=== PATIENT | female | born 1955 | race African-American/Black ===

== ENCOUNTER 2020-02-25 16:08 | Outpatient (REF) | payer OTHER, SELFPAY ==
--- NOTE | 2020-02-25 16:14 | XR_ITS ---
EXAMINATION: XR LUMBOSACRAL SPINE CLINICAL INFORMATION: Lumbar radiculopathy COMPARISON: None TECHNIQUE: Three views of the lumbosacral spine. FINDINGS: There is no fracture or subluxation. Vertebral body height and alignment is maintained. Mild disc space narrowing of L5-S1. Remaining disc spaces are maintained. Small osteophytes at L3-L4 noted. The sacroiliac joints are symmetric. The sacrum appears intact. The visualized bowel gas pattern is unremarkable. XR/XR lumbar spine 2-3V IMPRESSION: Mild degenerative change noted.
== END 2020-02-25 16:09 | disposition home or self-care (01) ==
LOC: HO.HMGCX 16:08
PROVIDERS: PCP Internal Medicine; Visit Provider Internal Medicine
DX: M54.16 Radiculopathy, lumbar region (principal)
CPT/HCPCS: 72100

== ENCOUNTER 2020-04-09 09:35 | Outpatient (REF) | payer OTHER, SELFPAY ==
--- NOTE | 2020-04-09 | MM_ITS ---
EXAMINATION: MM SCREENING DIGITAL BREAST TOMOSYNTHESIS, BILATERAL CLINICAL INFORMATION: Screening. Asymptomatic. The lifetime risk of breast cancer based on the Tyrer-Cuzick Model is 6%. COMPARISON: Mammography: 12/06/2018, 06/19/2013 TECHNIQUE: Digital breast tomosynthesis is performed in both the craniocaudal and mediolateral oblique views along with computer-aided detection (CAD). Synthesized 2D images are generated from the tomosynthesis. Additional right CC view is provided. FINDINGS: There are scattered areas of fibroglandular density (ACR BI-RADS breast composition Category b). There are no significant masses, abnormal calcifications, or other abnormalities. Parenchymal pattern is similar to prior study. No developing density. No significant changes. MM/MM tomosynthesis screening BI IMPRESSION: No mammographic evidence of malignancy. ASSESSMENT: BI-RADS 1: Negative RECOMMENDATION: Routine annual mammography screening. This patient's information was entered into a reminder system with a target due date for their next mammogram.
== END 2020-04-09 09:36 | disposition home or self-care (01) ==
LOC: HO.MAMMO 09:35
PROVIDERS: Visit Provider Internal Medicine
DX: Z12.31 Encounter for screening mammogram for malignant neoplasm of breast (principal)
CPT/HCPCS: 77063; 77067

== ENCOUNTER 2020-08-28 12:58 | Outpatient (REF) | payer OTHER, SELFPAY ==
--- NOTE | ~2020-08-28 | MM_ITS ---
EXAMINATION: BONE DENSITOMETRY CLINICAL INDICATION: Encounter for screening for osteoporosis. Age-related osteoporosis without current pathological fracture. History of osteoporosis, follow up. COMPARISON: Previous BD dated 03/12/2013 and baseline BD dated 06/22/2010. TECHNIQUE: Using a Agent[employer] DXA System (software version: 13.1) manufactured by [employer], dual-energy x-ray absorptiometry was performed of the lumbar spine and left hip. The images are of good technical quality. Summary results are attached. FINDINGS: AP SPINE L1-L4: Current: BMD 0.864 g/cm2, Z-score -1.6, T-score -2.6, osteoporosis, 7.3% decrease from previous, 1.7% decrease from baseline (<5% change is not significant). Prior: BMD 0.932 g/cm2. Baseline: BMD 0.879 g/cm2. LEFT FEMUR, NECK: Current: BMD 0.890 g/cm2, Z-score -0.4, T-score -1.1, osteopenia. Prior: BMD 0.959 g/cm2. Baseline: BMD 0.950 g/cm2. LEFT FEMUR, TOTAL: Current: BMD 0.989 g/cm2, Z-score 0.2, T-score -0.1, normal, -5.4% decrease from previous, -2.9% decrease from baseline (<5% change is not significant). Prior: BMD 1.046 g/cm2. Baseline: BMD 1.019 g/cm2. IDENTIFIED RISK FACTORS: Bilateral oophorectomy. Hysterectomy. Secondary osteoporosis, (early menopause). Osteoporosis. HISTORY OF FRACTURE: None listed. MEDICATIONS: None listed. MM/XR DEXA axial skeleton IMPRESSION: 1. DIAGNOSIS: Osteoporosis based on the lowest T-score value of -2.6 in the lumbar spine applying World Health Organization criteria. 2. 10-YEAR FRACTURE RISK PREDICTION, FRAX: According to the guidelines, FRAX calculation should only be performed on patients in the osteopenia bone density category. Therefore, FRAX was not performed on this patient. 3. Treatment Recommendations: NOF guidelines recommend consideration for treatment in postmenopausal women and men age 50 and older presenting with the following: -A hip or vertebral (clinical or morphometric) fracture. -T-score less than or equal to -2.5 at the femoral neck or spine after appropriate evaluation to exclude secondary causes. -Low bone mass at the hip or spine and a 10-year fracture probability by FRAX of greater than or equal to 3% for hip fracture or greater than or equal to 20% for major osteoporotic fracture based on the [place] adapted WHO algorithm. 4. Other Recommendations: All treatment decisions require clinical judgment and consideration of individual patient factors, including patient preferences, comorbidities, previous drug use, risk factors not captured in the FRAX model (e.g. frailty, falls, vitamin D deficiency, increased bone turnover, interval significant decline in bone density) and possible under or overestimation of fracture risk by FRAX. Additional medical evaluation for secondary cause of low bone mineral density may be appropriate. FUTURE SCAN RECOMMENDATION: People with diagnosed cases of osteoporosis or at high risk for fracture should have regular bone mineral density tests. For patients eligible for Medicare, routine testing is allowed once every 2 years. The testing frequency can be increased to one year for patients who have rapidly progressing disease, those who are receiving or discontinuing medical therapy to restore bone mass, or have additional risk factors.
== END 2020-08-28 12:59 | disposition home or self-care (01) ==
LOC: HO.MAMMO 12:58
PROVIDERS: PCP Internal Medicine; Visit Provider Internal Medicine
DX: M81.0 Age-related osteoporosis without current pathological fracture (principal); Z90.722 Acquired absence of ovaries, bilateral; Z90.710 Acquired absence of both cervix and uterus
CPT/HCPCS: 77080

== ENCOUNTER 2020-10-13 06:15 | Outpatient (REF) | payer OTHER, SELFPAY ==
[2020-10-13 07:01] LABS: MANUAL DIFF FLAG NO
[2020-10-13 07:04] LABS: Basophils Percent Auto 0.5 % (0-2); Eosinophils Absolute Auto 0.1 X10*3/uL (0.0-0.4); Eosinophils Percent Auto 2.2 % (0-4); Hematocrit 33.3 % (37-47); Hemoglobin 10.7 g/dl (12.0-16.0); Immature Retic Fraction 4.8 % (3.0-15.9); Lymphocytes Absolute Auto 2.2 X10*3/uL (1.2-4.9); Lymphocytes Percent Auto 53.8 % (20-40); Mean Corpuscular HGB Conc 32.1 g/dl (31.0-35.0); Mean Corpuscular Hemoglobin 27.4 pg (27.0-33.0); Mean Corpuscular Volume 85.4 fL (80-98); Monocytes Absolute Auto 0.3 X10*3/uL (0.1-1.2); Neutrophils Absolute Auto 1.5 X10*3/uL (2.0-8.3); Neutrophils Percent Auto 35.5 % (45-73); Platelet Count 246 X10*3/uL (160-400); Red Cell Distribution Width 13.7 % (11.0-16.0); Retic HGB Equivalent 31.3 pg (30.0-35.0); Reticulocyte Percent 1.2 % (0.5-1.8); Reticulocytes Absolute 0.046 X10*6/uL (0.026-0.095); White Blood Count 4.1 X10*3/uL (4.8-10.8)
[2020-10-13 07:27] LABS: Alanine Aminotransferase 28 U/L (0-31); Albumin Level 4.2 g/dL (3.5-5.0); Alkaline Phosphatase 80 U/L (39-117); Anion Gap 12 (12-20); Aspartate Amino Transferase 25 U/L (5-31); Bilirubin Total 0.9 mg/dL (0.0-1.0); Blood Urea Nitrogen 20 mg/dL (9-16); Calcium 9.4 mg/dL (8.4-10.2); Carbon Dioxide 27 mmol/L (22-29); Chloride 107 mmol/L (96-108); Cholesterol 162 mg/dL; Estimated Glomerular Filt Rate > 60; Glucose Random 87 mg/dL (60-115); HDL Cholesterol 54 mg/dL; Iron 78 mcg/dL (30-160); LDL Cholesterol Calculated 98 mg/dl; Percent Iron Saturation 22 % (15-50); Potassium 4.6 mmol/L (3.3-5.1); Sodium 141 mmol/L (135-145); Total Iron Binding Capacity 354 mcg/dL (228-428); Triglycerides 50 mg/dL; Unsaturated Iron Binding 276 ug/dL
[2020-10-13 07:51] LABS: Ferritin 23 ng/mL (10-250); Free T4 (Free Thyroxine) 0.99 ng/dL (0.71-1.85); Thyroid Stimulating Hormone 0.61 uIU/mL (0.32-4.0); Vitamin D 25-OH Total 19.6 ng/mL (>30)
[2020-10-13 08:39] LABS: Folate > 20.0 ng/mL (> or = 4.0); Vitamin B12 432 pg/mL (200-900)
== END 2020-10-13 06:16 | disposition home or self-care (01) ==
LOC: HO.LAB 06:15
PROVIDERS: PCP Internal Medicine; Visit Provider Internal Medicine
DX: D64.9 Anemia, unspecified (principal); E78.00 Pure hypercholesterolemia, unspecified; M81.0 Age-related osteoporosis without current pathological fracture
CPT/HCPCS: 36415; 80053; 80061; 82306; 82607; 82728; 82746; 83540; 84439; 84443; 85025; 85045

== ENCOUNTER 2022-01-31 08:55 | Outpatient (REF) | payer OTHER, SELFPAY ==
--- NOTE | ~2022-01-31 | XR_ITS ---
EXAMINATION: 1. RADIOGRAPHS RIGHT KNEE 2. RADIOGRAPHS LEFT KNEE CLINICAL INFORMATION: Knee pain COMPARISON: None TECHNIQUE: 2 views of each knee were obtained. FINDINGS: Right knee: No fracture or dislocation. Small suprapatellar joint effusion. Joint spaces are relatively well-maintained. Tiny tricompartmental marginal osteophytes. No focal soft tissue swelling of the anterior knee. Left knee: No fracture or dislocation. Small suprapatellar joint effusion. Mild narrowing of the medial joint compartment. Tiny tricompartmental marginal osteophytes. No focal soft tissue swelling of the anterior knee. XR/XR knee RT 2V IMPRESSION: Mild degenerative changes of both knees with small bilateral suprapatellar joint effusions.
--- NOTE | ~2022-01-31 | XR_ITS ---
EXAMINATION: 1. RADIOGRAPHS RIGHT KNEE 2. RADIOGRAPHS LEFT KNEE CLINICAL INFORMATION: Knee pain COMPARISON: None TECHNIQUE: 2 views of each knee were obtained. FINDINGS: Right knee: No fracture or dislocation. Small suprapatellar joint effusion. Joint spaces are relatively well-maintained. Tiny tricompartmental marginal osteophytes. No focal soft tissue swelling of the anterior knee. Left knee: No fracture or dislocation. Small suprapatellar joint effusion. Mild narrowing of the medial joint compartment. Tiny tricompartmental marginal osteophytes. No focal soft tissue swelling of the anterior knee. XR/XR knee LT 2V IMPRESSION: Mild degenerative changes of both knees with small bilateral suprapatellar joint effusions.
== END 2022-01-31 08:56 | disposition home or self-care (01) ==
LOC: HO.XRAY 08:55
PROVIDERS: PCP Internal Medicine; Visit Provider Internal Medicine
DX: M25.561 Pain in right knee (principal); M25.562 Pain in left knee
CPT/HCPCS: 73560

== ENCOUNTER 2022-04-22 07:15 | Outpatient (REF) | payer OTHER, SELFPAY ==
[2022-04-22 07:27] LABS: MANUAL DIFF FLAG NO
[2022-04-22 07:40] LABS: Basophils Percent Auto 0.4 % (0-2); Eosinophils Absolute Auto 0.1 X10*3/uL (0.0-0.4); Eosinophils Percent Auto 1.8 % (0-4); Hematocrit 37.4 % (37.0-47.0); Hemoglobin 11.8 g/dl (12.0-16.0); Immature Retic Fraction 4.7 % (3.0-15.9); Lymphocytes Absolute Auto 2.2 X10*3/uL (1.2-4.9); Lymphocytes Percent Auto 48.7 % (20-40); Mean Corpuscular HGB Conc 31.6 g/dl (31.0-35.0); Mean Corpuscular Hemoglobin 27.4 pg (27.0-33.0); Mean Platelet Volume 9.8 fL (9.4-12.3); Monocytes Absolute Auto 0.4 X10*3/uL (0.1-1.2); Monocytes Percent Auto 8.7 % (2-11); Neutrophils Absolute Auto 1.8 x10*3/uL (2.0-8.3); Neutrophils Percent Auto 40.4 % (45-73); Platelet Count 309 X10*3/uL (160-400); Red Cell Distribution Width 13.5 % (11.0-16.0); Retic HGB Equivalent 31.8 pg (30.0-35.0); Reticulocyte Percent 1.1 % (0.5-1.8); Reticulocytes Absolute 0.046 X10*6/uL (0.026-0.095); White Blood Count 4.5 X10*3/uL (4.8-10.8)
[2022-04-22 08:25] LABS: Alanine Aminotransferase 18 U/L (0-31); Albumin Level 4.1 g/dL (3.5-5.0); Alkaline Phosphatase 66 U/L (39-117); Anion Gap 9 (12-20); Aspartate Amino Transferase 19 U/L (5-31); Bilirubin Total 0.4 mg/dL (0.0-1.0); Blood Urea Nitrogen 15 mg/dL (9-16); Calcium 9.2 mg/dL (8.4-10.2); Carbon Dioxide 30 mmol/L (22-29); Chloride 107 mmol/L (96-108); Cholesterol 172 mg/dL; Estimated Glomerular Filt Rate > 60; Glucose Random 96 mg/dL (60-115); HDL Cholesterol 47 mg/dL; Iron 71 mcg/dL (30-160); LDL Cholesterol Calculated 110 mg/dl; Percent Iron Saturation 25 % (15-50); Potassium 4.1 mmol/L (3.3-5.1); Sodium 142 mmol/L (135-145); Total Iron Binding Capacity 282 mcg/dL (228-428); Total Protein 7.8 g/dL (6.5-8.0); Triglycerides 77 mg/dL; Unsaturated Iron Binding 211 ug/dL
[2022-04-22 09:01] LABS: Ferritin 67 ng/mL (10-250); Free T4 (Free Thyroxine) 0.99 ng/dL (0.71-1.85); Thyroid Stimulating Hormone 0.75 uIU/mL (0.32-4.0); Vitamin D 25-OH Total 31.4 ng/mL (>30)
[2022-04-22 09:16] LABS: Folate 13.1 ng/mL (> or = 4.0); Vitamin B12 461 pg/mL (200-900)
== END 2022-04-22 07:16 | disposition home or self-care (01) ==
LOC: HO.LAB 07:15
PROVIDERS: PCP Internal Medicine; Visit Provider Internal Medicine
DX: D64.9 Anemia, unspecified (principal); E78.00 Pure hypercholesterolemia, unspecified
CPT/HCPCS: 36415; 80053; 80061; 82306; 82607; 82728; 82746; 83540; 84439; 84443; 85025; 85045

== ENCOUNTER 2022-05-18 12:43 | Outpatient (REF) | payer OTHER, SELFPAY ==
--- NOTE | ~2022-05-18 | MM_ITS ---
EXAMINATION: MM SCREENING DIGITAL BREAST TOMOSYNTHESIS, BILATERAL CLINICAL INFORMATION: Screening. Asymptomatic. The lifetime risk of breast cancer based on the Tyrer-Cuzick Model is 3.9%. COMPARISON: Mammography: April 09, 2020 and studies dating back to June 19, 2013 TECHNIQUE: Digital breast tomosynthesis is performed in both the craniocaudal and mediolateral oblique views along with computer-aided detection (CAD). Synthesized 2D images are generated from the tomosynthesis. FINDINGS: There are scattered areas of fibroglandular density (ACR BI-RADS breast composition Category b). There are no significant masses, abnormal calcifications, or other abnormalities. MM/MM tomosynthesis screening BI IMPRESSION: No significant changes from prior exam. ASSESSMENT: BI-RADS 1: Negative RECOMMENDATION: Routine annual mammography screening. This patient's information was entered into a reminder system with a target due date for their next mammogram.
== END 2022-05-18 12:44 | disposition home or self-care (01) ==
LOC: HO.MAMMO 12:43
PROVIDERS: PCP Internal Medicine; Visit Provider Internal Medicine
DX: Z12.31 Encounter for screening mammogram for malignant neoplasm of breast (principal)
CPT/HCPCS: 77063; 77067

== ENCOUNTER 2022-08-30 09:22 | Outpatient (REF) | payer OTHER, SELFPAY ==
--- NOTE | ~2022-08-30 | MM_ITS ---
EXAMINATION: BONE DENSITOMETRY CLINICAL INDICATION: Age-related osteoporosis without current pathological fracture. COMPARISON: Previous BD dated 08/28/2020 and baseline BD dated 06/22/2010. TECHNIQUE: Using a [employer] DXA System (software version: 13.1) manufactured by [employer], dual-energy x-ray absorptiometry was performed of the lumbar spine and left hip. The images are of good technical quality. Summary results are attached. FINDINGS: AP SPINE L1-L4: Current: BMD 0.908 g/cm2, Z-score -1.4, T-score -2.3, osteopenia, 5.1% increase from previous, 3.3% increase from baseline (<5% change is not significant). Prior: BMD 0.864 g/cm2. Baseline: BMD 0.879 g/cm2. LEFT FEMUR, NECK: Current: BMD 0.916 g/cm2, Z-score -0.4, T-score -0.9, normal. Prior: BMD 0.890 g/cm2. Baseline: BMD 0.950 g/cm2. LEFT FEMUR, TOTAL: Current: BMD 1.028 g/cm2, Z-score 0.3, T-score 0.2, normal, 3.9% increase from previous, 0.9% increase from baseline (<5% change is not significant). Prior: BMD 0.989 g/cm2. Baseline: BMD 1.019 g/cm2. IDENTIFIED RISK FACTORS: Menopause, hysterectomy, osteoporosis. HISTORY OF FRACTURE: None listed. MEDICATIONS: Calcium supplements or multivitamin, vitamin D, bisphosphonate. MM/XR DEXA axial skeleton IMPRESSION: 1. DIAGNOSIS: Osteopenia based on the lowest T-score value of -2.3 in the lumbar spine applying World Health Organization criteria. 2. 10-YEAR FRACTURE RISK PREDICTION, FRAX: Not performed in this patient on estrogen or bone building treatments. 3. Treatment Recommendations: NOF guidelines recommend consideration for treatment in postmenopausal women and men age 50 and older presenting with the following: -A hip or vertebral (clinical or morphometric) fracture. -T-score less than or equal to -2.5 at the femoral neck or spine after appropriate evaluation to exclude secondary causes. -Low bone mass at the hip or spine and a 10-year fracture probability by FRAX of greater than or equal to 3% for hip fracture or greater than or equal to 20% for major osteoporotic fracture based on the [place] adapted WHO algorithm. 4. Other Recommendations: All treatment decisions require clinical judgment and consideration of individual patient factors, including patient preferences, comorbidities, previous drug use, risk factors not captured in the FRAX model (e.g. frailty, falls, vitamin D deficiency, increased bone turnover, interval significant decline in bone density) and possible under or overestimation of fracture risk by FRAX. Additional medical evaluation for secondary cause of low bone mineral density may be appropriate. FUTURE SCAN RECOMMENDATION: People with diagnosed cases of osteoporosis or at high risk for fracture should have regular bone mineral density tests. For patients eligible for Medicare, routine testing is allowed once every 2 years. The testing frequency can be increased to one year for patients who have rapidly progressing disease, those who are receiving or discontinuing medical therapy to restore bone mass, or have additional risk factors.
== END 2022-08-30 09:23 | disposition home or self-care (01) ==
LOC: HO.MAMMO 09:22
PROVIDERS: PCP Internal Medicine; Visit Provider Internal Medicine
DX: Z13.820 Encounter for screening for osteoporosis (principal); Z78.0 Asymptomatic menopausal state; M81.0 Age-related osteoporosis without current pathological fracture
CPT/HCPCS: 77080

== ENCOUNTER 2022-10-14 08:14 | Emergency (ER) | payer OTHER, SELFPAY ==
[2022-10-14 08:21] VITALS: BP 134/74; PULSE 78; RESP 17; TEMP 36.6; O2SAT 98; BMI 25.5
--- NOTE | 2022-10-14 08:43 | ED.LOWEXIN ---
HPI - Extremity Injury (Lower) General Chief Complaint: Wound/Laceration Stated Complaint: stepped on nail Time Seen by Provider: 10/14/22 08:43 Source: patient, RN notes reviewed and old records reviewed Mode of arrival: ambulatory History of Present Illness HPI Narrative: 67-year-old female with a past medical history of anemia, osteoarthritis, presenting to the ED complaining puncture wound to left foot s/p stepping on a lilian nail this morning around 06:30AM. Admits was walking in garden, then felt puncture to foot, was wearing shoes. Tetanus unknown. Denies injury to other area, numbness, tingling or weakness MD complaint: foot injury Related Data Previous Rx's Medication Instructions Recorded alendronate 70 mg tablet 70 mg PO QWEEK 90 days #13 tabs 01/20/22 meloxicam 15 mg tablet 15 mg PO DAILY #20 tabs 01/28/22 ascorbate calcium (vitamin C) 500 500 mg PO DAILY 90 days #90 tabs 07/06/22 mg tablet cholecalciferol (vitamin D3) 25 25 mcg PO DAILY 90 days #90 tabs 07/06/22 mcg (1,000 unit) tablet (Vitamin D3) ferrous sulfate 325 mg (65 mg 325 mg PO BID #60 tabs 10/06/22 iron) tablet cephalexin 500 mg capsule 500 mg PO QID 7 days #28 caps 10/14/22 ciprofloxacin HCl 500 mg tablet 500 mg PO BID 7 days #14 tabs 10/14/22 (Cipro) Allergies Allergy/AdvReac Type Severity Reaction Status Date / Time No Known Allergies Allergy Verified 10/14/22 08:20 Review of Systems Review of Systems: Constitutional: No Fever, No Chills ENT/Mouth: No Ear Pain, No Nasal Congestion, No sore throat, No Rhinorrhea, No Swallowing Difficulty Cardiovascular: No Chest Pain, No SOB Respiratory: No Cough, No Sputum, No Wheezing Gastrointestinal: No Nausea, No Vomiting, No Abdominal pain Musculoskeletal: No joint pain, No Myalgias, No Joint Swelling Skin: + Skin Lesions, No rash Neuro: No Weakness, No Numbness, No Paresthesias Yes all other systems are reviewed and are negative Constitutional: Constitutional: Reports as per [facility] Past Medical History Attestation statement: The following information was validated with the patient. Source: old records reviewed Medical History Amenorrhea Bilateral knee pain Breast lesion Malaria Osteoporosis Right lumbar radiculitis Vitamin D deficiency Surgical History H/O hysterectomy for benign disease Family History Family History Mother No problems noted. Father No problems noted. Brother No problems noted. Social History Social History Housing: Other Alcohol intake: never Patient Tobacco Use Status: Never used Tobacco e-Cigarette/Vaping Use: Never Used Second Hand Smoke Exposure: No Advance Directives: No service: No Current occupational status: unemployed Cognitive needs: No Hearing needs: No Vision needs: No Physical Exam Vital Signs: Vital Signs: Last Vital Signs Temp 98 F 10/14/22 08:21 Pulse 78 10/14/22 08:21 Resp 17 10/14/22 08:21 BP 134/74 10/14/22 08:21 Pulse Ox 98 10/14/22 08:21 O2 Del Method Room Air 10/14/22 08:21 BMI result Body Mass Index 25.5 Const: General: cooperative, healthy appearing and no acute distress Orientation/consciousness: patient oriented x3 Limitations: no limitations HEENT: Head: Yes normal to inspection and Yes atraumatic Ears: hearing grossly normal bilaterally General nose exam: Normal external nose present Face and sinus: Yes normal facial exam Eyes: General: appearance normal, both eyes and all related structures EOM: EOMs intact bilaterally Neck: Neck: Yes normal visual inspection and Yes no meningeal signs Resp: Effort & Inspection: normal respiratory effort and no respiratory distress Cardio: Rate: regular rate Peripheral pulses: dorsalis pedis present Skin: Other: + 1.5 cm laceration noted to plantar aspect of left foot. Subcu tissue present. Bleeding controlled. No surrounding erythema, fluctuance/induration or pus drainage. Neurovascularly intact Rashes: no rashes Neuro: General: patient oriented x3, tone normal and no meningeal signs Gait exam (Neuro): Normal gait present Extrem: General: Yes normal to inspection Medications Administered Discontinued Medications Generic Name Dose Route Start Last Admin Trade Name Freq PRN Reason Stop Dose Admin Diphtheria/Tetanus/Acell Pertussis 0.5 ml 10/14/22 09:17 10/14/22 09:21 Diphth,Pertus(Acell),Tet Adult 0.5 Ml Syringe IM 10/14/22 09:18 0.5 ml .ONCE ONE Administration Lidocaine HCl 5 ml 10/14/22 09:17 10/14/22 09:23 Lidocaine Hcl 1 % Mpf 5 Ml Vial INFILTRATI 10/14/22 09:18 5 ml ONCE ONE Administration Medical Decision Making Medical Decision Making MDM Narrative: 67-year-old female with a past medical history of anemia, osteoarthritis, presenting to the ED complaining puncture wound to left foot s/p stepping on a lilian nail this morning around 06:30AM. On exam vital signs stable, NAD, nontoxic appearing, physical exam as above with plantar puncture wound/laceration with subcu tissue. No surrounding cellulitis, bleeding controlled. No evidence of retained foreign body Plan: Update tetanus, repair wound, p.o. antibiotics Discussed with patient ideally would let wound closed by secondary intention however due to depth/extending subcu tissue was sutured closed. Discussed risk of infection and importance of antibiotic compliance. Please refer to course for remaining clinical decision making, interpretation of labs/imaging results, and discussions with consultants and/or family members. Results discussed with patient including worrisome signs and symptoms and strict return precautions, and when to return to the emergency department. They verbalized understanding and feel safe for discharge at this time. Differential Diagnosis Differential Diagnoses: The differential diagnosis associated with the presentation includes As above External Record Review External record reviewed: Inpatient record, Office record, Outpatient record, Prior outpatient labs, Prior outpatient radiology, Primary care record and Outside ED record Tests considered The following testing was considered but not selected: As above Prescription Management I considered prescription management with: Pain Medication and Antibiotic Procedures Laceration Laceration 1: Site: lower extremity Side (If applicable): left Size (cm): 1.5 Description: linear Depth: simple, single layer Local Anesthetic: lidocaine 1% Amount of anesthesia used (mL): 4 Pre-repair: wound explored, irrigated extensively and deep structures intact Skin layer closed with: nylon Size (cm): 4-0 Number of sutures: 4 Technique: simple, interrupted Discharge Plan Discharge Clinical Impression: Puncture wound of plantar aspect of foot, Laceration of foot Patient Disposition: Home, Self-Care Instructions: Laceration (DC), Puncture Wound in the Foot (ED) Additional Instructions: Keflex and Cipro are antibiotics based take as prescribed, please look at wound daily Your wounds were repaired today in the emergency department. Keep dry and clean. You need to return to any emergency department, urgent care, or your PCPs office in 7-10 days for suture removal Apply bacitracin and or Neosporin daily Once sutures are removed apply anti scar cream like Mederma If area begins look infected, is red, there is drainage, streaking, or you have fever please return to the emergency department Prescriptions: New ciprofloxacin HCl [Cipro] 500 mg tablet 500 mg PO BID 7 Days Qty: 14 0RF cephalexin 500 mg capsule 500 mg PO QID 7 Days Qty: 28 0RF No Action alendronate 70 mg tablet 70 mg PO QWEEK 90 Days Qty: 13 3RF ferrous sulfate 325 mg (65 mg iron) tablet 325 mg PO BID Qty: 60 2RF cholecalciferol (vitamin D3) [Vitamin D3] 25 mcg (1,000 unit) tablet 25 mcg PO DAILY 90 Days Qty: 90 3RF ascorbate calcium (vitamin C) 500 mg tablet 500 mg PO DAILY 90 Days Qty: 90 3RF meloxicam 15 mg tablet 15 mg PO DAILY Qty: 20 0RF Referrals: Po,Joy Lo MD [Primary Care Provider] - 1 week (For suture removal) Stand Alone Forms: Work/School Release Interventions: ED Discharge Assessment Last Done: 10/14/22 10:23 Discharge Date/Time: 10/14/22 10:24
--- NOTE | 2022-10-14 10:03 | PC.NURSE ---
provider at bedside suturing pt
== END 2022-10-14 10:24 | disposition home or self-care (01) ==
PROVIDERS: Emergency Provider Emergency Medicine Emergency Medical Services; PCP Internal Medicine
DX: S91.332A Puncture wound without foreign body, left foot, initial encounter (principal); S91.312A Laceration without foreign body, left foot, initial encounter; S90.812A Abrasion, left foot, initial encounter; W45.8XXA Other foreign body or object entering through skin, initial encounter; Y93.9 Activity, unspecified; Y92.9 Unspecified place or not applicable; Y99.9 Unspecified external cause status; Z23 Encounter for immunization
CPT/HCPCS: 12001; 90471; 90715; 99282; 99284

== ENCOUNTER 2022-10-17 10:27 | Outpatient (AMB) | payer OTHER, SELFPAY ==
[2022-10-17 10:41] VITALS: BP 110/68; PULSE 95; O2SAT 96; BMI 26.6
--- NOTE | 2022-10-17 10:41 | A.OFFPC_ITS ---
Vital Signs 10/17/22 10:41 Height 5 ft 1 in Weight 141 lb BMI 26.6 BP 110/68 Blood Pressure Location Lt brachial Position Sitting Pulse 95 Pulse Source Pulse Oximeter Pulse Oximetry (%) 96 Oxygen Delivery Method Room Air Intake Visit Reasons: pain in foot- Intake Note: Patient here c/o of painful, swollen left foot since Monday [employer] Supervisor Required: No Accompanied by: Self / Same As Patient Allergies No Known Allergies Allergy (Verified 10/17/22 10:43) Tobacco use date assessed: 07/06/22 Fall risk assessment: No Falls in past year Last assessed Fall Risk: 10/17/22 Dental Screening Dental Screen Date: 10/17/22 Did you have a dental visit in the last 12 months?: No Did you have a dental problem in the last 6 months where you did not have access to dental care?: No Was dental information given to patient?: No HPI HPI Comments History of Present Illness Details 67-year-old female past medical history significant for lumbar degenerative disc disease, anemia, osteoporosis. Patient patient presents today for ER follow-up after stepping on a lilian nail on 10/14/22, tetanus shot was given in the emergency room and patient was placed on p.o. Keflex and cipro, recommended patient follow-up in 7-10 days for suture removal. Patient states does hav some throbbing pain in left foot at times has taken tylenol with some relief and also reports some swelling and warmth in the foot. Patient states on started on keflex. Patient advised to start on ciproflaxcin as advised by ER to prevent infection. 4 sutures present left plantar forefoot of right foot edges well approximated no erythema, drainage or warmth noted to site. Denies fevers,chills and sob. [facility] Medical History (Updated 10/17/22 @ 12:31 by MAGGIE Pimentel) Amenorrhea Bilateral knee pain Breast lesion Laceration of foot Malaria Osteoporosis Right lumbar radiculitis Vitamin D deficiency Surgical History H/O hysterectomy for benign disease Family History Mother No problems noted. Father No problems noted. Brother No problems noted. Social History Housing: Other Alcohol intake: never Patient Tobacco Use Status: Never used Tobacco e-Cigarette/Vaping Use: Never Used Second Hand Smoke Exposure: No service: No Current occupational status: unemployed Cognitive needs: No Hearing needs: No Vision needs: No Questionnaire Thrive Questionnaire Date Thrive assessed: 07/06/22 RYLEE-7 AMB Questionnaire RYLEE-7 Date RYLEE - 7 assessed: 07/06/22 Source: Developed by Drs. Ravi Harrison, Aretha Saldivar, Jamal Corley and colleagues, with an educational edelmira from [employer]. Review of Systems Const Denies chills, Denies fatigue, Denies fever(s) and Denies poor appetite Eyes Denies no additional complaints ENT Reports Normal hearing present Card Denies chest pain, Denies syncope, Denies rapid heart rate and Denies dyspnea Resp Denies cough and Denies dyspnea GI Denies change in stool character, Denies constipation, Denies diarrhea, Denies nausea and Denies vomiting Denies urinary frequency, Denies dysuria and Denies urinary urgency Skin/Breast Reports other (4 sutures right bottom of foot. ) Neuro Reports Normal hearing present, Denies confusion and Denies syncope Psych Denies confusion Endo Denies fatigue Physical exam (Primary Care) Vital Signs: Last Vital Signs Pulse 95 10/17/22 10:41 BP 110/68 10/17/22 10:41 Pulse Ox 96 10/17/22 10:41 Oxygen Delivery Method Room Air 10/17/22 10:41 BMI result Body Mass Index 26.6 Tobacco/Smoking Status: Tobacco use Status Tobacco use date assessed 07/06/22 10/17/22 10:45 Patient Tobacco Use Status Never used Tobacco 10/17/22 10:45 e-Cigarette/Vaping Use Never Used 10/17/22 10:45 Thrive Assessment: Date of Thrive Assessment Date Thrive assessed 07/06/22 10/17/22 10:45 Const General: No confusion Orientation/consciousness: No confusion Neuro General: No confusion Cranial nerves: Yes Normal hearing present Extrem Ankle/foot/toe images: 1. 4 sutures present to left plantar forefoot edges well approximated, no erythema, drainage or warmth. Assessment and Plan Assessment & Plan (1) Laceration of foot: Code(s): S91.319A - Laceration without foreign body, unspecified foot, initial encounter Plan: Patient advised to take keflex and ciproflaxin. Patient made aware of possible side effect of cipro can cause tendon rupture. Signs and symptoms reviewed with patient when to follow up. Please follow up on 10/21/22 or 10/24/22 for suture removal. Continue to keep covered when ambulating and appl antibiotic ointment such as bacitracin. 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 Patient adivised can take OTC ibuprofen or Tylenol with food as needed for pain and swelling, Do not take ibuprofen with meloxicam elevate foot when sitting. Plan Follow up in 1 week for suture removal Coding Level of Care Code Est Pt Level 3 (60262) Diagnoses Laceration of foot S91.319A
== END 2022-10-17 11:04 | disposition home or self-care (01) ==
PROVIDERS: PCP Internal Medicine; Visit Provider Nurse Practitioner Family
DX: S91.319A Laceration without foreign body, unspecified foot, initial encounter (principal)
CPT/HCPCS: 99213

== ENCOUNTER 2022-10-21 07:58 | Outpatient (AMB) | payer OTHER, SELFPAY ==
--- NOTE | 2022-10-21 08:08 | MHC.PC.OV ---
Vital Signs 10/21/22 08:09 Height 5 ft 1 in Weight 143 lb 6 oz BMI 27.1 BP 140/92 H Blood Pressure Location Lt brachial Position Sitting Pulse 65 Pulse Source Pulse Oximeter Pulse Oximetry (%) 98 Oxygen Delivery Method Room Air Intake Visit Reasons: Suture Removal Left Foot Water Main Pipe Layer Required: No Accompanied by: Self / Same As Patient Allergies No Known Allergies Allergy (Verified 10/21/22 08:09) Tobacco use date assessed: 10/21/22 Fall risk assessment: No Falls in past year Last assessed Fall Risk: 10/21/22 Dental Screening Dental Screen Date: 10/21/22 Did you have a dental visit in the last 12 months?: No Did you have a dental problem in the last 6 months where you did not have access to dental care?: No Was dental information given to patient?: No HPI HPI Comments History of Present Illness Details 67-year-old female past medical history significant for lumbar degenerative disc disease, anemia, osteoporosis.? Patient patient presents today for suture removal after stepping on a lilian nail on 10/14/22, tetanus shot was given in the emergency room and patient was placed on p.o. Keflex and cipro, patient presents today for suture removal. 4 sutures removed from left plantar forefoot of right foot edges well approximated no erythema, drainage or warmth noted to site, healing ecchymosis noted around injury.Patient tolerated well. Denies fevers,chills and sob.? Patient states has a couple more days left and then she will complete her antibiotics. [facility] Medical History (Updated 10/17/22 @ 12:31 by MAGGIE Pimentel) Amenorrhea Bilateral knee pain Breast lesion Laceration of foot Malaria Osteoporosis Right lumbar radiculitis Vitamin D deficiency Surgical History H/O hysterectomy for benign disease Family History Mother No problems noted. Father No problems noted. Brother No problems noted. Social History Housing: Other Alcohol intake: never Patient Tobacco Use Status: Never used Tobacco e-Cigarette/Vaping Use: Never Used Second Hand Smoke Exposure: No service: No Current occupational status: unemployed Cognitive needs: No Hearing needs: No Vision needs: No Questionnaire PHQ-9 Over the last 2 weeks, how often have you been bothered by any of the following problems? 1. Little interest or pleasure in doing things: not at all 2. Feeling down, depressed, or hopeless: not at all 3. Trouble falling or staying asleep, or sleeping too much: not at all 4. Feeling tired or having little energy: not at all 5. Poor appetite or overeating: not at all 6. Feeling bad about yourself - or that you are a failure or have let yourself or your family down: not at all 7. Trouble concentrating on things, such as reading the newspaper or watching television: not at all 8. Moving or speaking so slowly that other people could have noticed. Or the opposite - being so fidgety or restless that you have been moving around a lot more than usual: not at all 9. Thoughts that you would be better off or of hurting yourself in some way: not at all Total score: 0 Depression Screening Interpretation: Negative Source: Developed by Drs. Ravi Harrison, Aretha Saldivar, Jamal Corley and colleagues, with an educational edelmira from [employer]. Thrive Questionnaire Date Thrive assessed: 10/21/22 I am a: Patient What is your living situation today?: I have a steady place to live Within the past 12 months, did the food you bought not last and you didn't have the money to get more?: Never true Within the past 12 months, did you worry whether your food would run out before you got money to buy more?: Never true Do you have trouble paying for medicines?: No Do you have trouble getting transportation to medical appointments?: No Do you have trouble paying your heating and electricity bill?: No Do you have trouble taking care of your child, family member or friend?: No Do you have trouble with day-to-day activities such as bathing, preparing meals, shopping, managing finances, etc.?: No Are you currently unemployed and looking for a job?: No Are you interested in more education?: No Currently or been in a relationship where the following occur: no concerns reported AUDIT C Alcohol Use Questionnaire (AUDIT-C) 1. How often do you have a drink containing alcohol?: Never 2. How many drinks containing alcohol do you have on a typical day when you are drinking?: 1 or 2 3. How often do you have six or more drinks on one occasion?: Never Total Score: 0 RYLEE-7 AMB Questionnaire RYLEE-7 Date RYLEE - 7 assessed: 10/21/22 Feeling nervous, anxious, or on edge: 0 = Not at all Not being able to stop or control worryin = Not at all Worrying too much about different things: 0 = Not at all Trouble relaxin = Not at all Being so restless that it is hard to sit still: 0 = Not at all Becoming easily annoyed or irritable: 0 = Not at all Feeling afraid as if something awful might happen: 0 = Not at all Total RYLEE-7 score (0-4 normal; 5-9 mild; 10-14 moderate; 15-21 severe): 0 Source: Developed by Drs. Ravi Harrison, Aretha Saldivar, Jamal Corley and colleagues, with an educational edelmira from [employer]. Review of Systems Const Denies chills, Denies fatigue, Denies fever(s) and Denies poor appetite Card Denies chest pain, Denies rapid heart rate and Denies dyspnea Resp Denies cough and Denies dyspnea Endo Denies fatigue Physical exam (Primary Care) Vital Signs: Last Vital Signs Pulse 65 10/21/22 08:09 BP 140/92 H 10/21/22 08:09 Pulse Ox 98 10/21/22 08:09 Oxygen Delivery Method Room Air 10/21/22 08:09 BMI result Body Mass Index 27.1 Tobacco/Smoking Status: Tobacco use Status Tobacco use date assessed 10/21/22 10/21/22 08:15 Patient Tobacco Use Status Never used Tobacco 10/21/22 08:15 e-Cigarette/Vaping Use Never Used 10/21/22 08:15 PHQ-9: PHQ-9 Score PHQ-9: Total score 0 10/21/22 08:24 Depression Screening Interpretation: Negative Thrive Assessment: Date of Thrive Assessment Date Thrive assessed 10/21/22 10/21/22 08:15 Currently or been in a relationship where the following occur: no concerns reported Const General: cooperative and no acute distress Orientation/consciousness: patient oriented x3 HENMT Head: Yes normocephalic and Yes atraumatic Eyes Conjunctivae: conjunctivae normal Chest Chest palpation & inspection: normal inspection of the chest Resp Effort & Inspection: normal respiratory effort Auscultation: clear to auscultation bilaterally, no crackles, no rhonchi and no wheezes Cardio Rate: regular rate Rhythm: regular rhythm Heart sounds: S1 normal heart sound present and S2 normal heart sound present Peripheral pulses: dorsalis pedis present GI Inspection: Yes normal to inspection Neuro General: patient oriented x3 Extrem General: No edema Ankle/foot/toe images: 1. 4 sutures removed from left plantar forefoot of right foot edges well approximated no erythema, drainage or warmth noted to site, healing ecchymosis noted around injury. Assessment and Plan Assessment & Plan (1) Laceration of foot: Code(s): S91.319A - Laceration without foreign body, unspecified foot, initial encounter (2) Visit for suture removal: Code(s): Z48.02 - Encounter for removal of sutures Plan: 4 sutures removed from left plantar forefoot of right foot edges well approximated no erythema, drainage or warmth noted to site, healing ecchymosis noted around injury. Patient tolerated suture removal well. Patient advised to complete antibiotics in its entirety. Patient advise can return to work, keep area clean and dry. If patient has pain or swelling following working patient advise can take [id number] ibuprofen as needed for pain or swelling and elevate in apply ice needed. Signs and symptoms reviewed with patient when to follow-up with PCP or seek emergency medical attention. Coding Level of Care Code Est Pt Level 3 (62206) Diagnoses Laceration of foot S91.319A Visit for suture removal Z48.02
[2022-10-21 08:09] VITALS: BP 140/92; PULSE 65; O2SAT 98; BMI 27.1
== END 2022-10-21 08:32 | disposition home or self-care (01) ==
PROVIDERS: PCP Internal Medicine; Visit Provider Nurse Practitioner Family
DX: S91.319A Laceration without foreign body, unspecified foot, initial encounter (principal); Z48.02 Encounter for removal of sutures
CPT/HCPCS: 99213

== ENCOUNTER 2023-03-09 08:25 | Outpatient (AMB) | payer OTHER, SELFPAY ==
[2023-03-09 08:35] VITALS: BP 122/74; PULSE 68; O2SAT 99; BMI 26.8
--- NOTE | 2023-03-09 08:35 | MHC.PC.OV ---
Vital Signs 03/09/23 08:35 Height 5 ft 1 in Weight 142 lb BMI 26.8 BP 122/74 Blood Pressure Location Lt brachial Position Sitting Pulse 68 Pulse Source Pulse Oximeter Pulse Oximetry (%) 99 Oxygen Delivery Method Room Air Intake Visit Reasons: Ankle injury Allergies No Known Allergies Allergy (Verified 03/09/23 08:36) Tobacco use date assessed: 10/21/22 Fall risk assessment: No Falls in past year Last assessed Fall Risk: 03/09/23 Dental Screening Dental Screen Date: 03/09/23 Did you have a dental visit in the last 12 months?: Yes Did you have a dental problem in the last 6 months where you did not have access to dental care?: No Was dental information given to patient?: Patient has dentist HPI Ankle injury HPI Details 67-year-old overweight female with a history of osteoporosis lumbar degenerative disc disease last seen in October 2022 for a suture removal from a laceration of the foot. October 2022. Patient stepped on a lilian nail in 10/14/2022 tetanus shot was given antibiotic Keflex and Cipro. Patient's last blood work was done in April 2022 patient declined any vaccinations. Otherwise has been doing fine has some low back pain but declined any medication uses Biofreeze for pain discussed about exercises. Discussed about the bone density that was done in August 2022 [facility] Medical History (Updated 03/09/23 @ 08:55 by Joy Champagne MD) Laceration of foot Bilateral knee pain Breast lesion Vitamin D deficiency Malaria Amenorrhea Osteoporosis Right lumbar radiculitis Surgical History H/O hysterectomy for benign disease Family History Mother No problems noted. Father No problems noted. Brother No problems noted. Social History Housing: Other Alcohol intake: never Patient Tobacco Use Status: Never used Tobacco e-Cigarette/Vaping Use: Never Used Second Hand Smoke Exposure: No service: No Current occupational status: unemployed Cognitive needs: No Hearing needs: No Vision needs: No Questionnaire PHQ-9 Over the last 2 weeks, how often have you been bothered by any of the following problems? 1. Little interest or pleasure in doing things: not at all 2. Feeling down, depressed, or hopeless: not at all 3. Trouble falling or staying asleep, or sleeping too much: not at all 4. Feeling tired or having little energy: not at all 5. Poor appetite or overeating: not at all 6. Feeling bad about yourself - or that you are a failure or have let yourself or your family down: not at all 7. Trouble concentrating on things, such as reading the newspaper or watching television: not at all 8. Moving or speaking so slowly that other people could have noticed. Or the opposite - being so fidgety or restless that you have been moving around a lot more than usual: not at all 9. Thoughts that you would be better off or of hurting yourself in some way: not at all Total score: 0 Depression Screening Interpretation: Negative Depression Screening Done: Yes Source: Developed by Drs. Ravi Harrison, Aretha Saldivar, Jamal Corley and colleagues, with an educational edelmira from [employer]. Thrive Questionnaire Date Thrive assessed: 10/21/22 AUDIT C Alcohol Use Questionnaire (AUDIT-C) 1. How often do you have a drink containing alcohol?: Never 2. How many drinks containing alcohol do you have on a typical day when you are drinking?: 1 or 2 3. How often do you have six or more drinks on one occasion?: Never Total Score: 0 RYLEE-7 AMB Questionnaire RYLEE-7 Date RYLEE - 7 assessed: 10/21/22 Source: Developed by Drs. Ravi Harrison, Aretha Saldivar, Jamal Corley and colleagues, with an educational edelmira from [employer]. Physical exam (Primary Care) Vital Signs: Last Vital Signs Pulse 68 03/09/23 08:35 BP 122/74 03/09/23 08:35 Pulse Ox 99 03/09/23 08:35 Oxygen Delivery Method Room Air 03/09/23 08:35 BMI result Body Mass Index 26.8 Tobacco/Smoking Status: Tobacco use Status Tobacco use date assessed 10/21/22 03/09/23 08:41 Patient Tobacco Use Status Never used Tobacco 03/09/23 08:41 e-Cigarette/Vaping Use Never Used 03/09/23 08:41 PHQ-9: PHQ-9 Score PHQ-9: Total score 0 03/09/23 08:41 Depression Screening Interpretation: Negative Thrive Assessment: Date of Thrive Assessment Date Thrive assessed 10/21/22 03/09/23 08:41 Const General: alert; No acute distress Eyes Conjunctivae: conjunctivae normal Resp Auscultation: clear to auscultation bilaterally Cardio Rate: regular rate Rhythm: regular rhythm GI Inspection: Yes normal to inspection Extrem General: Yes normal to inspection and No edema Assessment and Plan Assessment & Plan (1) Osteoporosis: Comment: Surgical menopause age 46 alendronate June 2010 osteopenia June 2022 Code(s): M81.0 - Age-related osteoporosis without current pathological fracture Plan: Discussed about improvement on the bone density (2) Laceration of foot: Code(s): S91.319A - Laceration without foreign body, unspecified foot, initial encounter Plan: Resolved (3) Overweight (BMI 25.0-29.9): Code(s): E66.3 - Overweight Plan: Diet and exercise (4) Anemia: Code(s): D64.9 - Anemia, unspecified Plan: Advised to retest blood work (5) Low back pain: Code(s): M54.50 - Low back pain, unspecified Plan: Discussed About conservative measures keeping active exercises keeping well hydrated, any knee healthy. Orders: Orders Complete Blood Count Auto Diff 2 Months D64.9 - Anemia, unspecified Ferritin 2 Months D64.9 - Anemia, unspecified IRON PROFILE 2 Months D64.9 - Anemia, unspecified Vitamin B12 and Folate 2 Months D64.9 - Anemia, unspecified Thyroid Stimulating Hormone 2 Months D64.9 - Anemia, unspecified Comprehensive Met. Panel 2 Months D64.9 - Anemia, unspecified Free T4 (Free Thyroxine) 2 Months D64.9 - Anemia, unspecified Lipid Panel 2 Months D64.9 - Anemia, unspecified, E78.00 - Pure hypercholesterolemia, unspecified Vitamin D 25-OH Total 2 Months M81.0 - Age-related osteoporosis without current pathological fracture Coding Level of Care Code Est Pt Level 4 (79953) Diagnoses Osteoporosis M81.0 Laceration of foot S91.319A Overweight (BMI 25.0-29.9) E66.3 Anemia D64.9 Low back pain M54.50
== END 2023-03-09 09:01 | disposition home or self-care (01) ==
PROVIDERS: PCP Internal Medicine; Visit Provider Internal Medicine
DX: M81.0 Age-related osteoporosis without current pathological fracture (principal); S91.319A Laceration without foreign body, unspecified foot, initial encounter; E66.3 Overweight; D64.9 Anemia, unspecified; M54.50 Low back pain, unspecified
CPT/HCPCS: 99214

== ENCOUNTER 2023-05-15 06:15 | Outpatient (REF) | payer OTHER, SELFPAY ==
[2023-05-15 06:37] LABS: MANUAL DIFF FLAG NO
[2023-05-15 07:47] LABS: Basophils Percent Auto 0.4 % (0-2); Eosinophils Absolute Auto 0.1 X10*3/uL (0.0-0.4); Hematocrit 36.7 % (37.0-47.0); Hemoglobin 11.8 g/dl (12.0-16.0); Imm Gran Abs Auto 0.01 X10*3/uL (0.00-0.03); Imm Gran Pct Auto 0.2 % (0.0-0.4); Lymphocytes Absolute Auto 2.3 X10*3/uL (1.2-4.9); Lymphocytes Percent Auto 43.4 % (20-40); Mean Corpuscular HGB Conc 32.2 g/dl (31.0-35.0); Mean Corpuscular Hemoglobin 27.4 pg (27.0-33.0); Mean Corpuscular Volume 85.2 fL (80.0-98.0); Monocytes Absolute Auto 0.4 X10*3/uL (0.1-1.2); Monocytes Percent Auto 7.6 % (2-11); Neutrophils Absolute Auto 2.5 x10*3/uL (2.0-8.3); Neutrophils Percent Auto 46.4 % (45-73); Platelet Count 304 X10*3/uL (160-400); Red Blood Count 4.31 X10*6/uL (4.20-5.50); Red Cell Distribution Width 13.5 % (11.0-16.0); White Blood Count 5.4 X10*3/uL (4.8-10.8)
[2023-05-15 08:23] LABS: Alanine Aminotransferase 23 U/L (0-31); Albumin Level 4.1 g/dL (3.5-5.0); Alkaline Phosphatase 71 U/L (39-117); Anion Gap 10 (12-20); Aspartate Amino Transferase 20 U/L (5-31); Bilirubin Total 0.3 mg/dL (0.0-1.0); Blood Urea Nitrogen 14 mg/dL (9-16); Calcium 8.9 mg/dL (8.4-10.2); Carbon Dioxide 28 mmol/L (22-29); Chloride 106 mmol/L (96-108); Cholesterol 158 mg/dL (<200); Estimated Glomerular Filt Rate > 60; Glucose Random 92 mg/dL (60-115); HDL Cholesterol 44 mg/dL (>40); Iron 48 mcg/dL (30-160); LDL Cholesterol Calculated 97 mg/dL (<100); Percent Iron Saturation 19 % (15-50); Potassium 4.3 mmol/L (3.3-5.1); Sodium 140 mmol/L (135-145); Total Iron Binding Capacity 250 mcg/dL (228-428); Total Protein 8.3 g/dL (6.5-8.0); Triglycerides 89 mg/dL (<150); Unsaturated Iron Binding 202 ug/dL
[2023-05-15 08:40] LABS: Folate 13.2 ng/mL (> or = 4.0); Vitamin B12 519 pg/mL (200-900)
[2023-05-15 08:49] LABS: Ferritin 110 ng/mL (10-250); Free T4 (Free Thyroxine) 0.95 ng/dL (0.71-1.85); Thyroid Stimulating Hormone 0.81 uIU/mL (0.32-4.0); Vitamin D 25-OH Total 39.3 ng/mL (>30)
== END 2023-05-15 06:16 | disposition home or self-care (01) ==
LOC: HO.LAB 06:15
PROVIDERS: PCP Internal Medicine; Visit Provider Internal Medicine
DX: D64.9 Anemia, unspecified (principal); E78.00 Pure hypercholesterolemia, unspecified; M81.0 Age-related osteoporosis without current pathological fracture
CPT/HCPCS: 36415; 80053; 80061; 82306; 82607; 82728; 82746; 83540; 84439; 84443; 85025

== ENCOUNTER 2023-06-01 10:59 | Outpatient (AMB) | payer OTHER, SELFPAY ==
[2023-06-01 11:04] VITALS: BP 108/70; PULSE 71; O2SAT 98; BMI 26.5
--- NOTE | 2023-06-01 11:04 | A.OFFPC_ITS ---
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 Required: No Allergies No Known Allergies Allergy (Verified 06/01/23 11:04) Medication List - Last Reconciled 06/01/23 by Joy Champagne MD alendronate 70 mg PO QWEEK 90 days ascorbate calcium (vitamin C) 500 mg PO DAILY 90 days cholecalciferol (vitamin D3) (Vitamin D3) 25 mcg PO DAILY 90 days ferrous sulfate 325 mg PO BID Tobacco use date assessed: 06/01/23 Fall risk assessment: No Falls in past year Last assessed Fall Risk: 06/01/23 Dental Screening Dental Screen Date: 06/01/23 Did you have a dental visit in the last 12 months?: Yes Did you have a dental problem in the last 6 months where you did not have access to dental care?: No Was dental information given to patient?: Patient has dentist HPI 2 Month F/U HPI Details 68-year-old overweight female with a his tory of osteoporosis anemia and low back pain coming in for follow-up. Last seen in February 2023 patient's mammogram is up-to-date bone density done in August 2022 and Cologuard is due this year. Patient is going back to [facility]. [facility] Medical History (Updated 06/01/23 @ 11:32 by Joy Champagne MD) Laceration of foot Bilateral knee pain Breast lesion Vitamin D deficiency Malaria Amenorrhea Osteoporosis Right lumbar radiculitis Surgical History H/O hysterectomy for benign disease Family History Mother No problems noted. Father No problems noted. Brother No problems noted. Social History Housing: Other Alcohol intake: never Patient Tobacco Use Status: Never used Tobacco e-Cigarette/Vaping Use: Never Used Second Hand Smoke Exposure: No service: No Current occupational status: unemployed Cognitive needs: No Hearing needs: No Vision needs: No Questionnaire PHQ-9 Over the last 2 weeks, how often have you been bothered by any of the following problems? 1. Little interest or pleasure in doing things: not at all 2. Feeling down, depressed, or hopeless: not at all 3. Trouble falling or staying asleep, or sleeping too much: not at all 4. Feeling tired or having little energy: not at all 5. Poor appetite or overeating: not at all 6. Feeling bad about yourself - or that you are a failure or have let yourself or your family down: not at all 7. Trouble concentrating on things, such as reading the newspaper or watching television: not at all 8. Moving or speaking so slowly that other people could have noticed. Or the opposite - being so fidgety or restless that you have been moving around a lot more than usual: not at all 9. Thoughts that you would be better off or of hurting yourself in some way: not at all Total score: 0 Depression Screening Interpretation: Negative Depression Screening Done: Yes Source: Developed by Drs. Ravi Harrison, Aretha Saldivar, Jamal Corley and colleagues, with an educational edelmira from [employer]. Thrive Questionnaire Date Thrive assessed: 06/01/23 AUDIT C Alcohol Use Questionnaire (AUDIT-C) 1. How often do you have a drink containing alcohol?: Never 2. How many drinks containing alcohol do you have on a typical day when you are drinking?: 1 or 2 3. How often do you have six or more drinks on one occasion?: Never Total Score: 0 YRLEE-7 AMB Questionnaire RYLEE-7 Date RYLEE - 7 assessed: 06/01/23 Source: Developed by Drs. Ravi Harrison, Aretha Saldivar, Jamal Corley and colleagues, with an educational edelmira from [employer]. Physical exam (Primary Care) Vital Signs: Last Vital Signs Pulse 71 06/01/23 11:04 BP 108/70 06/01/23 11:04 Pulse Ox 98 06/01/23 11:04 Oxygen Delivery Method Room Air 06/01/23 11:04 BMI result Body Mass Index 26.5 Tobacco/Smoking Status: Tobacco use Status Tobacco use date assessed 06/01/23 06/01/23 11:07 Patient Tobacco Use Status Never used Tobacco 06/01/23 11:07 e-Cigarette/Vaping Use Never Used 06/01/23 11:07 PHQ-9: PHQ-9 Score PHQ-9: Total score 0 06/01/23 11:07 Depression Screening Interpretation: Negative Thrive Assessment: Date of Thrive Assessment Date Thrive assessed 06/01/23 06/01/23 11:07 Const General: alert; No acute distress Eyes Conjunctivae: conjunctivae normal Resp Auscultation: clear to auscultation bilaterally Cardio Rate: regular rate Rhythm: regular rhythm GI Inspection: Yes normal to inspection Extrem General: Yes normal to inspection and No edema Assessment and Plan Assessment & Plan (1) Osteoporosis: Comment: Surgical menopause age 46 alendronate June 2010 osteopenia June 2022 Code(s): M81.0 - Age-related osteoporosis without current pathological fracture Plan: Continue with alendronate and repeat bone density next year (2) Overweight (BMI 25.0-29.9): Code(s): E66.3 - Overweight Plan: Diet and exercise (3) Anemia: Comment: Anemia of chronic disease Code(s): D64.9 - Anemia, unspecified Plan: Continuing to monitor and this is stable (4) Colon cancer screening: Code(s): Z12.11 - Encounter for screening for malignant neoplasm of colon Plan: Discussed that the Cologuard test was done 2020 (5) Colon cancer screening: Code(s): Z12.11 - Encounter for screening for malignant neoplasm of colon Orders: Referrals Cologuard Test Z12.11 - Encounter for screening for malignant neoplasm of colon Medications: Discontinued meloxicam Discontinued Reason: Patient Refused 15 mg PO DAILY 20 tabs 0RF M25.561 - Pain in right knee, M25.562 - Pain in left knee Coding Level of Care Code Est Pt Level 4 (57409) Diagnoses Osteoporosis M81.0 Overweight (BMI 25.0-29.9) E66.3 Anemia D64.9 Colon cancer screening Z12.11
== END 2023-06-01 11:34 | disposition home or self-care (01) ==
PROVIDERS: PCP Internal Medicine; Visit Provider Internal Medicine
DX: M81.0 Age-related osteoporosis without current pathological fracture (principal); E66.3 Overweight; D64.9 Anemia, unspecified; Z12.11 Encounter for screening for malignant neoplasm of colon
CPT/HCPCS: 99214

== ENCOUNTER 2023-06-16 09:53 | Outpatient (REF) | payer OTHER, SELFPAY | END 2023-06-16 09:54 | disposition home or self-care (01) | LOC: HO.MAMMO 09:53 | PROVIDERS: PCP Internal Medicine; Visit Provider Internal Medicine | DX: Z12.31 Encounter for screening mammogram for malignant neoplasm of breast (principal) | CPT/HCPCS: 77063; 77067 ==

== ENCOUNTER → 2023-06-16 10:00 | Outpatient (BNV) | payer OTHER, SELFPAY | PROVIDERS: PCP Internal Medicine; Visit Provider Radiology Diagnostic Radiology | DX: Z12.31 Encounter for screening mammogram for malignant neoplasm of breast (principal) | CPT/HCPCS: 77063; 77067 ==

== ENCOUNTER 2023-07-11 08:49 | Outpatient (AMB) | payer OTHER, SELFPAY ==
[2023-07-11 08:51] VITALS: BP 126/68; PULSE 72; O2SAT 98; BMI 26.6
--- NOTE | 2023-07-11 08:51 | A.OFFPC_ITS ---
Vital Signs 07/11/23 08:51 Height 5 ft 1 in Weight 141 lb BMI 26.6 BP 126/68 Blood Pressure Location Lt brachial Position Sitting Pulse 72 Pulse Source Pulse Oximeter Pulse Oximetry (%) 98 Oxygen Delivery Method Room Air Intake Visit Reasons: Annual Exam Intake Note: Patient is here today for a physical. [employer] Required: No Allergies No Known Allergies Allergy (Verified 07/11/23 08:52) Medication List - Last Reconciled 07/11/23 by Joy Champagne MD alendronate 70 mg PO QWEEK 90 days ascorbate calcium (vitamin C) 500 mg PO DAILY 90 days cholecalciferol (vitamin D3) (Vitamin D3) 25 mcg PO DAILY 90 days Tobacco use date assessed: 07/11/23 Fall risk assessment: No Falls in past year Last assessed Fall Risk: 07/11/23 Dental Screening Dental Screen Date: 06/01/23 HPI Annual Exam HPI Details 68-year-old overweight female with a his tory of chronic anemia and osteoporosis last seen in May 2023. Patient is here for physical exam. Mammogram is up-to-date bone density is up-to-date August 2022 and the last colonoscopy Cologuard negative August 2020. Due in August 2023. while singing complains of chest tightness 2 months, no nausea or burping [facility] Medical History (Updated 07/11/23 @ 09:16 by Joy Champagne MD) Laceration of foot Bilateral knee pain Vitamin D deficiency Malaria Amenorrhea Osteoporosis Right lumbar radiculitis Surgical History (Updated 07/11/23 @ 09:12 by Joy Champagne MD) Breast lesion H/O hysterectomy for benign disease Family History Mother No problems noted. Father No problems noted. Brother No problems noted. Social History Housing: Other Alcohol intake: never Patient Tobacco Use Status: Never used Tobacco e-Cigarette/Vaping Use: Never Used Second Hand Smoke Exposure: No service: No Current occupational status: unemployed Cognitive needs: No Hearing needs: No Vision needs: No Questionnaire Thrive Questionnaire Date Thrive assessed: 06/01/23 AUDIT C Alcohol Use Questionnaire (AUDIT-C) 1. How often do you have a drink containing alcohol?: Never 2. How many drinks containing alcohol do you have on a typical day when you are drinking?: 1 or 2 3. How often do you have six or more drinks on one occasion?: Never Total Score: 0 RYLEE-7 AMB Questionnaire RYLEE-7 Date RYLEE - 7 assessed: 06/01/23 Source: Developed by Drs. Ravi Harrison, Aretha Saldivar, Jamal Corley and colleagues, with an educational edlemira from [employer]. Review of Systems Const Denies poor appetite and Denies weakness Eyes Denies no additional complaints ENT Reports Normal hearing present, Denies dizziness, Denies nasal congestion, Denies tinnitus and Denies sore throat Card Denies chest pain, Denies syncope, Denies rapid heart rate and Denies dyspnea Resp Denies cough and Denies dyspnea GI Denies change in stool character, Reports constipation, Denies diarrhea, Denies nausea and Denies vomiting Denies urinary frequency, Denies difficulty voiding and Denies dysuria Neuro Reports Normal hearing present, Denies confusion, Denies dizziness, Denies syncope and Denies weakness Psych Denies confusion Physical exam (Primary Care) Vital Signs: Last Vital Signs Pulse 72 07/11/23 08:51 BP 126/68 07/11/23 08:51 Pulse Ox 98 07/11/23 08:51 Oxygen Delivery Method Room Air 07/11/23 08:51 BMI result Body Mass Index 26.6 Tobacco/Smoking Status: Tobacco use Status Tobacco use date assessed 07/11/23 07/11/23 08:52 Patient Tobacco Use Status Never used Tobacco 07/11/23 08:52 e-Cigarette/Vaping Use Never Used 07/11/23 08:52 Thrive Assessment: Date of Thrive Assessment Date Thrive assessed 06/01/23 07/11/23 08:52 Const General: No confusion Orientation/consciousness: No confusion HENMT Head: Yes normocephalic Ears: external ears normal and TM's normal bilaterally Face and sinus: Yes normal facial exam Mouth: moist mucous membranes Throat: Yes tonsils normal Eyes Conjunctivae: conjunctivae normal Pupils: Equal, round and reactive pupils present and Pupil accommodation reflex normal Direct Ophthalmoscopy: normal light reflex Neck Neck: No lymphadenopathy Thyroid: Thyroid normal Chest Chest palpation & inspection: normal inspection of the chest Resp Effort & Inspection: normal respiratory effort and no audible wheezes Auscultation: clear to auscultation bilaterally, no crackles, no wheezes and lung sounds not diminished Cardio Rate: regular rate Rhythm: regular rhythm Peripheral pulses: radial pulses present and dorsalis pedis present GI Palpation (GI): no masses Auscultation: normal bowel sounds and normoactive bowel sounds Rectal Exam - Female: deferred Skin General skin exam: no rashes or lesions noted Rashes: no rashes Neuro General: No confusion Cranial nerves: Yes Equal, round and reactive pupils present and Yes Normal hearing present Cognition (Neuro): normal cognition Gait exam (Neuro): Normal gait present Motor exam (neuro): 5/5 motor strength present throughout Deep tendon reflexes (DTR's): Right brachioradialis reflex intensity grade: 2+, Left brachioradialis reflex intensity grade: 2+, Right patellar reflex intensity grade: 2+ and Left patellar reflex intensity grade: 2+ Extrem General: No edema Assessment and Plan Assessment & Plan (1) Annual physical exam: Code(s): Z00.00 - Encounter for general adult medical examination without abnormal findings (2) Anemia: Comment: Anemia of chronic disease Code(s): D64.9 - Anemia, unspecified (3) Osteoporosis: Comment: Surgical menopause age 46 alendronate June 2010 osteopenia June 2022 Code(s): M81.0 - Age-related osteoporosis without current pathological fracture Plan: Presently on alendronate up-to-date with bone density calcium plus vitamin-D (4) Overweight (BMI 25.0-29.9): Code(s): E66.3 - Overweight Plan: Diet and exercise (5) Colon cancer screening: Code(s): Z12.11 - Encounter for screening for malignant neoplasm of colon Plan: Reminded about the Cologuard test this year August 2023 (6) Chest pain: Code(s): R07.9 - Chest pain, unspecified Orders: Orders CA stress test Today R07.9 - Chest pain, unspecified Coding Level of Care Code Est Pt Prev Care >65y(90306) Diagnoses Annual physical exam Z00.00 Anemia D64.9 Osteoporosis M81.0 Overweight (BMI 25.0-29.9) E66.3 Colon cancer screening Z12. Chest pain R07.9
== END 2023-07-11 09:26 | disposition home or self-care (01) ==
PROVIDERS: Visit Provider Internal Medicine
DX: Z00.00 Encounter for general adult medical examination without abnormal findings (principal); D64.9 Anemia, unspecified; M81.0 Age-related osteoporosis without current pathological fracture; E66.3 Overweight; Z12.11 Encounter for screening for malignant neoplasm of colon; R07.9 Chest pain, unspecified
CPT/HCPCS: 99397

== ENCOUNTER → 2023-07-19 10:25 | Outpatient (REF) | payer OTHER, SELFPAY ==
--- NOTE | 2023-07-19 10:27 | CA_ITS ---
Acquisition Time: 2023-07-19 10:24:58 Total Exercise Time: 00:05:01 Test Indications: chest pain Medications: Protocol: ARA Max HR: 137 BPM 88% of Pred: 154 BPM Max BP: 154/070 mmHG Max Work Load: 5.0 METS Exercise stress test exercise 5 min 1 sec of Ara protocol stage 1 - last minute increased speed and incline, achieving 88% MPHR, with mild SOB, no chest discomfort, without arrhythmais, with brisk heart rate response, with normotensive response to exercise, without EKG changes. Test reviewed with Dr. Berkowitz Referred By: Joy Champagne Overread By: Suzie Elizabeth
== END ==
LOC: HO.CARD 10:25
PROVIDERS: PCP Internal Medicine; Visit Provider Internal Medicine
DX: R07.9 Chest pain, unspecified (principal)
CPT/HCPCS: 93017

== ENCOUNTER → 2023-07-19 10:27 | Outpatient (BNV) | payer OTHER, SELFPAY | PROVIDERS: PCP Internal Medicine; Visit Provider Nurse Practitioner | DX: R06.02 Shortness of breath (principal) | CPT/HCPCS: 93016; 93018 ==